=== PATIENT | female | born 1980 | race Caucasian/White ===

== ENCOUNTER 2022-01-10 14:47 | Emergency (ER) | payer MEDICAID ==
[2022-01-10 14:54] VITALS: BP 152/92
--- NOTE | 2022-01-10 15:08 | ED Physician Documentation ---
PD HPI HEENT - Stated complaint Stated Complaint: MOUTH PX - Chief complaint Chief Complaint: Heent - History obtained from History obtained from: Patient - History of Present Illness Timing - onset: How many weeks ago (1) - Additional information Additional information: 41-year-old female presents for evaluation of left upper molar pain for 1 week. Patient states that she cracked a tooth and only just recently got health insurance so she has not been able to make an appointment with a dentist. She states that it is becoming progressively more painful and she is concerned that it is becoming infected. Patient has been icing it with minimal relief. She states she is allergic to aspirin, Tylenol, and Motrin, so she has not taken any pain medications. Review of Systems Ten Systems: 10 systems reviewed and negative Constitutional: denies: Fever, Chills Ears: denies: Loss of hearing, Drainage/discharge, Tinnitus/ringing Nose: denies: Rhinorrhea / runny nose, Foreign Body Throat: reports: Dental pain / toothache. denies: Oral lesions / sores GI: denies: Abdominal Pain, Nausea, Vomiting PD PAST MEDICAL HISTORY - Past Medical History Past Medical History: Yes - Present Medications Home Medications: Ambulatory Orders Medication Instructions Recorded Confirmed Clindamycin [Cleocin] 450 mg PO TID 10 Days #90 cap 01/10/22 - Allergies Allergies/Adverse Reactions: Allergies Allergy/AdvReac Type Severity Reaction Status Date / Time acetaminophen [From Tylenol] Allergy Unknown Verified 01/10/22 14:55 amoxicillin Allergy Unknown Verified 01/10/22 14:54 cephalexin [From Keflex] Allergy Unknown Verified 01/10/22 14:55 clavulanic acid Allergy Unknown Verified 01/10/22 14:54 [From Augmentin] gabapentin Allergy Unknown Verified 01/10/22 14:57 hydrocodone [From Vicodin] Allergy Unknown Verified 01/10/22 14:57 ibuprofen Allergy Unknown Verified 01/10/22 14:55 methadone Allergy Unknown Verified 01/10/22 14:56 morphine Allergy Unknown Verified 01/10/22 14:56 Penicillins Allergy Unknown Verified 01/10/22 14:55 tramadol Allergy Unknown Verified 01/10/22 14:57 PD ED PE NORMAL - Vitals Vital signs reviewed: Yes - General General: Alert and oriented X 3, Well developed/nourished, Other (in pain) - HEENT HEENT: Atraumatic, PERRL, EOMI, Other (Poor dentition) - Neck Neck: Supple, no meningeal sign, No bony TTP, C-Spine cleared by NEXUS criteria - Cardiac Cardiac: RRR, No murmur - Respiratory Respiratory: No respiratory distress, Clear bilaterally - Abdomen Abdomen: Soft, Non tender, Non distended - Derm Derm: Normal color, Warm and dry, No rash - Extremities Extremities: No deformity, Normal ROM s pain, No edema - Neuro Neuro: Alert and oriented X 3, instructional aide 2-12 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 Extensive dental caries, will treat for possible infection. Patient states she is allergic to Tylenol, Motrin, and anything contains products. Limited options for pain control. Patient was counseled on the importance of following up with a dentist. Informed of [facility] in [place] that takes her insurance. Departure - Departure Disposition: 01 Home, Self Care Clinical Impression: Pain due to dental caries Condition: Stable Instructions: ED Tooth Pain Prescriptions: Clindamycin [Cleocin] 450 mg PO TID 10 Days #90 cap Discharge Date/Time: 01/10/22 15:19
== END 2022-01-10 15:19 | disposition home or self-care (01) ==
LOC: ED 14:47
DX: K02.9 Dental caries, unspecified (principal)
CPT/HCPCS: 99282

== ENCOUNTER 2022-02-27 17:07 | Emergency (ER) | payer MEDICAID ==
[2022-02-27 17:42] LABS: BASOPHILS % (AUTO) 0.4 %; EOSINOPHILS # (AUTO) 0.1 10^3/uL (0.0-0.7); EOSINOPHILS % (AUTO) 1.2 %; HCT - HEMATOCRIT 38.8 % (37.0-47.0); HGB - HEMOGLOBIN 13.1 g/dL (12.0-16.0); LYMPHOCYTES # (AUTO) 1.6 10^3/uL (1.5-3.5); LYMPHOCYTES % (AUTO) 15.8 %; MEAN CORPUSCULAR HEMOGLOBIN 30.4 pg (27.0-31.0); MEAN CORPUSCULAR HGB CONC 33.8 g/dL (32.0-36.0); MEAN PLATELET VOLUME 10.7 fL (7.9-10.8); MONOCYTES # (AUTO) 1.2 10^3/uL (0.0-1.0); MONOCYTES % (AUTO) 11.6 %; NEUTROPHILS # (AUTO) 7.1 10^3/uL (1.5-6.6); NEUTROPHILS % (AUTO) 70.8 %; PLT - PLATELET COUNT 215 10^3/uL (130-450); RED BLOOD COUNT 4.31 10^6/uL (4.20-5.40); RED CELL DISTRIBUTION WIDTH 12.1 % (12.0-15.0)
[2022-02-27] MEDS ORDERED: ONDANSETRON 4 MG/2 ML VIAL IVP STA (17:47)
[2022-02-27] MEDS ORDERED: HYDROmorphone 1 MG/ML CARPUJECT IVP STA (17:47)
--- NOTE | 2022-02-27 17:47 | ED Physician Documentation ---
PD HPI ABD PAIN - Stated complaint Stated Complaint: R SIDE PAIN - Chief complaint Chief Complaint: Abd Pain - History obtained from History obtained from: Patient, Family - Additional information Additional information: 41-year-old woman with chronic pain, shoulders and back, history of hysterectomy, cholecystectomy and hernia mesh, still has her appendix. She presents with 2 to 3 days of progressive right lower quadrant tenderness and pain radiating to the low back associate with very mild nausea. She has had ovarian cyst before and this does not feel like that. Review of Systems Ten Systems: 10 systems reviewed and negative Constitutional: denies: Fever, Chills Respiratory: denies: Dyspnea, Cough GI: reports: Abdominal Pain, Nausea. 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 - Present Medications Home Medications: Ambulatory Orders Medication Instructions Recorded Confirmed Citalopram [CeleXA] 10 mg PO DAILY 02/27/22 02/27/22 oxyCODONE [Roxicodone] 5 mg ORAL QID 02/27/22 02/27/22 polyethylene glycoL 3350 [Miralax] 17 gm PO DAILY PRN #1 each 02/27/22 - Allergies Allergies/Adverse Reactions: Allergies Allergy/AdvReac Type Severity Reaction Status Date / Time acetaminophen [From Tylenol] Allergy Unknown Verified 02/27/22 17:25 amoxicillin Allergy Unknown Verified 02/27/22 17:25 cephalexin [From Keflex] Allergy Unknown Verified 02/27/22 17:25 clavulanic acid Allergy Unknown Verified 02/27/22 17:25 [From Augmentin] gabapentin Allergy Unknown Verified 02/27/22 17:25 hydrocodone [From Vicodin] Allergy Unknown Verified 02/27/22 17:25 ibuprofen Allergy Unknown Verified 02/27/22 17:25 methadone Allergy Unknown Verified 02/27/22 17:25 morphine Allergy Unknown Verified 02/27/22 17:25 Penicillins Allergy Unknown Verified 02/27/22 17:25 tramadol Allergy Unknown Verified 02/27/22 17:25 - Living Situation Living Situation: reports: With spouse/s.o. - Social History Smoking Status: Current every day smoker PD ED PE NORMAL - Vitals Vital signs reviewed: Yes - General General: Alert and oriented X 3, Other (She appears uncomfortable) - HEENT HEENT: PERRL, EOMI - Neck Neck: Supple, no meningeal sign, No bony TTP - Cardiac Cardiac: RRR, No murmur - Respiratory Respiratory: No respiratory distress, Clear bilaterally - Abdomen Abdomen: Normal bowel sounds, Soft, Other (Focally tender in the right lower quadrant without surgical signs) - Derm Derm: Normal color, Warm and dry - Extremities Extremities: No edema, No calf tenderness / cord - Neuro Neuro: Alert and oriented X 3, Normal speech Results - Vitals Vitals: Vital Signs - 24 hr 02/27/22 02/27/22 17:22 19:15 Temperature 37.5 C 37.7 C Heart Rate 96 87 Respiratory 16 15 Rate Blood Pressure 116/72 135/73 H O2 Saturation 99 97 Oxygen O2 Source Room air - Labs Labs: Laboratory Tests 02/27/22 02/27/22 17:36 17:36 WBC 10.0 RBC 4.31 Hgb 13.1 Hct 38.8 MCV 90.0 MCH 30.4 MCHC 33.8 RDW 12.1 Plt Count 215 MPV 10.7 Neut # (Auto) 7.1 H Lymph # (Auto) 1.6 [place] # (Auto) 1.2 H Eos # (Auto) 0.1 Baso # (Auto) 0.0 Absolute Nucleated RBC 0.00 Nucleated RBC % 0.0 Sodium 135 Potassium 3.8 Chloride 94 L Carbon Dioxide 30 Anion Gap 11.0 BUN 9 Creatinine 0.7 Estimated GFR (MDRD) 93 Glucose 96 Calcium 9.0 Total Bilirubin 0.8 AST 18 ALT 20 Alkaline Phosphatase 74 Total Protein 7.5 Albumin 3.9 Globulin 3.6 Albumin/Globulin Ratio 1.1 Lipase 18 L PD MEDICAL DECISION MAKING - ED course ED course: 41-year-old woman presents with progressive right lower quadrant pain of the last few days duration. She is on chronic narcotics for pain management. Lab work is relatively unremarkable. She is status post hysterectomy so there is no chance of . CT done showing constipation, no evidence of appendicitis, she does have an incidental right Middle lobe pulmonary nodule and mild postcholecystectomy intra and extrahepatic biliary dilatation without elevation of her transaminases or bilirubin. She was treated here initially with Dilaudid this was followed by Toradol. Given the likely cause of her pain is the constipation further narcotics were not offered and she was given laxatives here. Given close return precautions. We did discuss the right Middle lobe pulmonary nodule need for follow-up for same since she is an active smoker and she was encouraged to quit smoking. Departure - Departure Disposition: 01 Home, Self Care Clinical Impression: Abdominal pain, Constipation Condition: Good Record reviewed to determine appropriate education?: Yes Instructions: ED Abdominal Pain Female Non-Specific Abdominal Pain, ED Constipation Prescriptions: polyethylene glycoL 3350 [Miralax] 17 gm PO DAILY PRN #1 each PRN Reason: Constipation Comments: As discussed, the CAT scan is normal with regards to the appendix and other surgical or serious causes of pain, there is a large amount of stool so this is produced presumed to be your source of pain and for which I am giving you several laxatives. If not better in 24 hours please return for reevaluation. As discussed you have a small right middle lobe pulmonary nodule measuring 4 mm. Given that you do use tobacco will need repeat CAT scan in 12 months to reevaluate. Mention this to your physician at the next available appointment. Discharge Date/Time: 02/27/22 19:25
[2022-02-27] MEDS ORDERED: iohexoL-300 100 ML VIAL ONE (17:50)
[2022-02-27 17:55] LABS: ALBUMIN 3.9 g/dL (3.2-5.5); ALBUMIN/GLOBULIN RATIO 1.1 (1.0-2.2); BILIRUBIN,TOTAL 0.8 mg/dL (0.2-1.0); CREATININE 0.7 mg/dL (0.4-1.0); POTASSIUM 3.8 mmol/L (3.5-5.0); TOTAL PROTEIN 7.5 g/dL (6.7-8.2)
[2022-02-27] MEDS ORDERED: iohexoL-300 100 ML VIAL IVP ONE (18:21)
--- NOTE | 2022-02-27 19:03 | CT Report ---
PROCEDURE: ABDOMEN/PELVIS W INDICATIONS: IV only, right lower quadrant tenderness CONTRAST: 100ml omni 300 TECHNIQUE: After the administration of IV contrast, 5 mm thick sections acquired from the diaphragms to the symp hysis. 5 mm thick coronal and sagittal reformats were acquired. For radiation dose reduction, the f ollowing was used: automated exposure control, adjustment of mA and/or kV according to patient size. COMPARISON: None. FINDINGS: Image quality: Excellent. ABDOMEN: Lung bases: Essentially 4 mm nodule in the right middle lobe (series 4 image 1). Heart size is ilsa l. Small hiatal hernia. Solid organs: Liver and spleen are normal in size and enhancement. Mild hepatic steatosis. Gallblad arin is surgically absent. Common bile duct is dilated measuring up to 9 mm. No common bile duct stone s. Mild intrahepatic biliary dilation. Pancreas enhances normally. No adrenal nodules. Kidneys dem onstrate normal size and enhancement, without hydronephrosis. Peritoneum and bowel: Bowel loops demonstrate normal wall thickness and caliber. Appendix is normal . There is a large amount of stool in colon. No free fluid or air. Nodes and vessels: No retroperitoneal or mesenteric adenopathy by size criteria. Aorta and inferior vena cava are normal in size. Miscellaneous: No ventral hernias. There is a metallic artifact anterior to liver on the abdominal w all. PELVIS: Genitourinary: Bladder wall thickness is normal. Trace amount of free fluid in the cul-de-sac may b e physiological. Miscellaneous: No inguinal hernias or adenopathy. Bones: No suspicious bony lesions. No vertebral body compression fractures. IMPRESSION: 1. Normal appendix. A cause for right lower quadrant tenderness is not definitively identified. 2. A large amount of stool in colon. 3. There is mild intrahepatic and intrahepatic biliary dilation, which may be related to cholecystect nesha. Please correlate with serum bilirubin for biliary obstruction. 4. A 4 mm nodule in the right middle lobe. Please see enclosed follow-up recommendation. Fleischner Society criteria for SOLID lung nodule followup. Nodule size (mm)Low-risk patientHigh-risk patient "d4No follow-up neededFollow-up at 12 mo; if no change, no further follow-up >[id number]-[id number] CT at 12 mo; if no change, no further follow-up needed.Initial follow-up CT at 6-12 mo, then 18-24 mo if no change. >6-8Initial follow-up CT at 6-12 mo, then 18-24 mo if no change. Initial follow-up CT at 3-6 mo, then 9-12 mo and 24 mo if no change. >8Follow-up CT at 3, 9, 24 mo. Or PET and/or biopsy.Same as for low-risk pts. Fleischner Society criteria for SUB-SOLID lung nodule followup. Solitary pure ground-glass nodules 5 mm or lessNo followup needed. >5 mm3 mo follow-up CT to confirm persistence. Then annual CT for 3 years. Part-solid nodules3 mo follow-up CT to confirm persistence. If persistent with solid component <5 mm , annual CT for at least 3 years. If solid component is 5 mm or more, biopsy or surgical resection. Consider PET-CT for lesions > 10 mm. Multiple sub-solid nodules Pure ground glass nodules [address] at 2 and 4 years. Pure ground glass nodules >5 mm without dominant lesion. [address] to confirm persistence, then annual followup CT for at least 3 years. Dominant nodule(s) with part-solid or solid component. [address] to confirm persistence. If persistent, consider biopsy or surgical resection, eleanor if lesions have >5 mm solid component. Reviewed by: Lise Hercules MD on 02/27/2022 7:02 PM PST Approved by: Lise Hercules MD on 02/27/2022 7:02 PM PST Station ID: [id number]
[2022-02-27] MEDS ORDERED: KETOROLAC 15 MG/ML VIAL IVP STA (19:13)
[2022-02-27] MEDS ORDERED: bisacodyL 5 MG TABLET PO STA (19:13)
[2022-02-27] MEDS ORDERED: LACTULOSE 10 GM /15 ML UDC PO STA (19:13)
[2022-02-27 19:16] VITALS: BP 135/73
== END 2022-02-27 19:25 | disposition home or self-care (01) ==
LOC: ED 17:07
DX: K59.00 Constipation, unspecified (principal); R10.31 Right lower quadrant pain; R91.1 Solitary pulmonary nodule; F17.200 Nicotine dependence, unspecified, uncomplicated
CPT/HCPCS: 36415; 74177; 80053; 83690; 85025; 96374; 96375; 99284; A9270; J1170; Q9967

== ENCOUNTER 2022-07-21 15:23 | Emergency (ER) | payer MEDICAID ==
[2022-07-21 16:29] LABS: BASOPHILS % (AUTO) 0.6 %; EOSINOPHILS % (AUTO) 0.5 %; HCT - HEMATOCRIT 42.9 % (37.0-47.0); LYMPHOCYTES # (AUTO) 1.3 10^3/uL (1.5-3.5); LYMPHOCYTES % (AUTO) 20.2 %; MEAN CORPUSCULAR HGB CONC 32.6 g/dL (32.0-36.0); MEAN CORPUSCULAR VOLUME 88.8 fL (81.0-99.0); MEAN PLATELET VOLUME 10.7 fL (7.9-10.8); MONOCYTES # (AUTO) 0.5 10^3/uL (0.0-1.0); MONOCYTES % (AUTO) 6.8 %; NEUTROPHILS # (AUTO) 4.8 10^3/uL (1.5-6.6); NEUTROPHILS % (AUTO) 71.7 %; PLT - PLATELET COUNT 262 10^3/uL (130-450); RED BLOOD COUNT 4.83 10^6/uL (4.20-5.40); WHITE BLOOD COUNT 6.6 x10^3/uL (4.8-10.8)
[2022-07-21 16:34] VITALS: BP 135/89
--- NOTE | 2022-07-21 16:39 | ED Physician Documentation ---
History of Present Illness - Stated complaint Stated Complaint: FAST HEART RATE/ NUMBNESS IN HAND - Chief complaint Chief Complaint: Cardiac - Additonal information Additional information: 42-year-old female presents emergency department for evaluation of near syncope and feeling lightheaded. She was standing at work when she began to feel a racing heart and felt as though she was going to faint. The symptoms lasted about 5 minutes before subsiding. She denied chest pain or shortness of air. Denies any history of anemia, melena or vaginal bleeding. She is a daily tobacco and cannabis user. Also has chronic pain for which she is prescribed oxycodone. No recent travel. No immobilization or surgery. She is not on OCP. No unilateral leg swelling. Review of Systems Constitutional: denies: Fever, Chills Cardiac: reports: Palpitations. 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 - Present Medications Home Medications: Ambulatory Orders Medication Instructions Recorded Confirmed Citalopram [CeleXA] 10 mg PO DAILY 02/27/22 02/27/22 oxyCODONE [Roxicodone] 5 mg ORAL QID 02/27/22 02/27/22 polyethylene glycoL 3350(BULK) 17 gm PO DAILY PRN #1 each 02/27/22 [Miralax] - Allergies Allergies/Adverse Reactions: Allergies Allergy/AdvReac Type Severity Reaction Status Date / Time acetaminophen [From Tylenol] Allergy Unknown Verified 07/21/22 15:26 amoxicillin Allergy Unknown Verified 07/21/22 15:26 cephalexin [From Keflex] Allergy Unknown Verified 07/21/22 15:26 clavulanic acid Allergy Unknown Verified 07/21/22 15:26 [From Augmentin] gabapentin Allergy Unknown Verified 07/21/22 15:26 hydrocodone [From Vicodin] Allergy Unknown Verified 07/21/22 15:26 ibuprofen Allergy Unknown Verified 07/21/22 15:26 methadone Allergy Unknown Verified 07/21/22 15:26 morphine Allergy Unknown Verified 07/21/22 15:26 Penicillins Allergy Unknown Verified 07/21/22 15:26 tramadol Allergy Unknown Verified 02/27/22 17:25 - Social History Does the pt smoke?: Yes Smoking Status: Current every day smoker Does the pt drink ETOH?: No Substance Use and Type: Marijuana PD ED PE NORMAL - General General: Alert and oriented X 3, No acute distress - HEENT HEENT: Atraumatic, Moist mucous membranes - Neck Neck: Supple, no meningeal sign, No adenopathy - Cardiac Cardiac: RRR, No murmur - Respiratory Respiratory: No respiratory distress, Clear bilaterally - Abdomen Abdomen: Normal bowel sounds, Soft, Non tender - Back Back: No CVA TTP, No spinal TTP - Derm Derm: Normal color, Warm and dry - Extremities Extremities: No deformity - Neuro Neuro: Alert and oriented X 3, 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 Relevant findings are: Rate: Rate (enter#) (62) Rhythm: NSR [place]: Normal Intervals: Normal [place] QRS: Normal Ischemia: Normal ST segments Compare to prior EKG: Old EKG unavailable Computer interpretation: Agree with computer - Labs Labs: Laboratory Tests 07/21/22 07/21/22 16:22 16:22 WBC 6.6 RBC 4.83 Hgb 14.0 Hct 42.9 MCV 88.8 MCH 29.0 MCHC 32.6 RDW 13.0 Plt Count 262 MPV 10.7 Neut # (Auto) 4.8 Lymph # (Auto) 1.3 L [place] # (Auto) 0.5 Eos # (Auto) 0.0 Baso # (Auto) 0.0 Absolute Nucleated RBC 0.00 Nucleated RBC % 0.0 Sodium 138 Potassium 4.0 Chloride 101 Carbon Dioxide 28 Anion Gap 9.0 BUN 14 Creatinine 0.6 Estimated GFR (MDRD) 111 Glucose 101 H Calcium 9.4 Total Bilirubin 0.8 AST 14 ALT 13 Alkaline Phosphatase 73 Total Protein 7.9 Albumin 4.0 Globulin 3.9 Albumin/Globulin Ratio 1.0 Lipase 25 - Rads (name of study) cxr Relevant Findings:: EMP independent interpretation of test (No acute cardiopulmonary process) PD Medical Decision Making - ED course Complexity details: reviewed results, re-evaluated patient, d/w patient ED course: This is well-appearing 42-year-old female who presents emergency department for evaluation of near syncope. Reports being at work when she began to feel lightheaded, dizzy and had palpitations. No history of similar. However the patient does use opioids chronically due to chronic pain also consumes cannabis daily. She denied having chest pain or shortness of air. On presentation to the emergency department the patient appeared well. She was normotensive and without tachycardia or fever. Her cardiopulmonary auscultation was unremarkable. Neurological exam was also negative. I did obtain a CBC and electrolytes and per my interpretation no acute worrisome findings. Spe cifically no anemia or worrisome electrolyte derangement that could be considered as causative for near syncope. Her EKG showed sinus rhythm without ischemic changes. Chest x-ray showed no findings of pneumonia, pleural effusion cardiomegaly or heart failure. Orthostatics obtained in the emergency department were also negative. At this time Patient is stable for discharge home. I have asked her to consider If narcotic use may be contributing to her symptoms. I have asked her to consider tobacco cessation. She will follow close with PCP. May benefit from an outpatient Holter monitor. The usual emergent return precautions were discussed Departure - Departure Disposition: 01 Home, Self Care Clinical Impression: Near syncope Condition: Stable Record reviewed to determine appropriate education?: Yes Instructions: ED Near Syncope Unkn Comments: You are seen today in the emergency department because you began to feel lightheaded, dizzy and have palpitations. Here in the emergency department your CBC and electrolytes were all essentially normal. Your chest x-ray was also unremarkable. Your EKG was normal for age. At this time is not clear what the cause of your near fainting episode was. I encourage you to consider if your chronic opioid use could be contributing, Especially if coupled with cannabis use. Make sure that you are staying well- hydrated and eating frequent meals. Please discuss this ED visit with your primary care provider. If this becomes more recurrent you may benefit from outpatient referral for a Holter monitor. Return to the ER if you develop any sudden severe chest pain, fainting episodes or severely short of air.
[2022-07-21 16:42] LABS: BILIRUBIN,TOTAL 0.8 mg/dL (0.2-1.0); CALCIUM 9.4 mg/dL (8.5-10.3); CREATININE 0.6 mg/dL (0.4-1.0); TOTAL PROTEIN 7.9 g/dL (6.7-8.2)
--- NOTE | 2022-07-21 16:49 | XRAY Report ---
PROCEDURE: Chest 1 View X-Ray INDICATIONS: chest pain TECHNIQUE: One view of the chest was acquired. COMPARISON: None. FINDINGS: Surgical changes and devices: ACDF Lungs and pleura: No pleural effusions or pneumothorax. Lungs are clear. Mediastinum: Mediastinal contours appear normal. Heart size is normal. Bones and chest wall: No suspicious bony lesions. Overlying soft tissues appear unremarkable. IMPRESSION: No acute cardiopulmonary disease. Reviewed by: Simran Pérez MD on 07/21/2022 4:47 PM PDT Approved by: Simran Pérez MD on 07/21/2022 4:47 PM PDT Station ID: [id number]
== END 2022-07-21 17:28 | disposition home or self-care (01) ==
LOC: ED 15:23
DX: R55 Syncope and collapse (principal); F17.200 Nicotine dependence, unspecified, uncomplicated
CPT/HCPCS: 36415; 80053; 83690; 85025; 93005; 99283; 99284

== ENCOUNTER 2022-09-12 11:21 | Emergency (ER) | payer MEDICAID ==
[2022-09-12 11:51] LABS: BILIRUBIN,URINE NEGATIVE (NEGATIVE); GLUCOSE, URINE (UA) NEGATIVE (NEGATIVE); KETONES,URINE (UA) NEGATIVE (NEGATIVE); LEUKOCYTE ESTERASE, URINE NEGATIVE (NEGATIVE); NITRITE,URINE POSITIVE (NEGATIVE); OCCULT BLOOD,URINE TRACE-INTA (NEGATIVE); PH,URINE 5.5 PH (5.0-7.5); PROTEIN,URINE NEGATIVE (NEGATIVE); UROBILINOGEN,URINE 0.2 (NORMAL) E.U./dL (NORMAL)
[2022-09-12 11:52] LABS: BASOPHILS % (AUTO) 0.4 %; EOSINOPHILS # (AUTO) 0.1 10^3/uL (0.0-0.7); EOSINOPHILS % (AUTO) 0.7 %; HCT - HEMATOCRIT 43.9 % (37.0-47.0); HGB - HEMOGLOBIN 14.5 g/dL (12.0-16.0); LYMPHOCYTES # (AUTO) 1.6 10^3/uL (1.5-3.5); LYMPHOCYTES % (AUTO) 23.3 %; MEAN CORPUSCULAR HEMOGLOBIN 29.2 pg (27.0-31.0); MEAN CORPUSCULAR VOLUME 88.5 fL (81.0-99.0); MEAN PLATELET VOLUME 10.7 fL (7.9-10.8); MONOCYTES # (AUTO) 0.6 10^3/uL (0.0-1.0); MONOCYTES % (AUTO) 8.6 %; NEUTROPHILS # (AUTO) 4.7 10^3/uL (1.5-6.6); NEUTROPHILS % (AUTO) 66.9 %; PLT - PLATELET COUNT 246 10^3/uL (130-450); RED BLOOD COUNT 4.96 10^6/uL (4.20-5.40); RED CELL DISTRIBUTION WIDTH 13.5 % (12.0-15.0)
[2022-09-12 11:52] LABS: CLARITY,URINE CLEAR (CLEAR)
[2022-09-12 12:01] LABS: BACTERIA,URINE Few /HPF (None Seen); MUCUS,URINE Moderate Strands; RBC,URINE 0-5 /HPF (0-5); SQUAMOUS EPITHELIAL CELL,UR FEW Squamous (<= Few)
[2022-09-12 12:02] LABS: HCG UR QUAL NEGATIVE
[2022-09-12 12:05] LABS: ALBUMIN 4.2 g/dL (3.2-5.5); BILIRUBIN,TOTAL 1.3 mg/dL (0.2-1.0); CALCIUM 9.3 mg/dL (8.5-10.3); CREATININE 0.8 mg/dL (0.4-1.0); POTASSIUM 3.2 mmol/L (3.5-5.0); TOTAL PROTEIN 8.3 g/dL (6.7-8.2)
[2022-09-12] MEDS ORDERED: iohexoL-300 100 ML VIAL ONE (12:07)
--- NOTE | 2022-09-12 12:12 | ED Physician Documentation ---
PD HPI ABD PAIN - Stated complaint Stated Complaint: ABD CRAMPIN - Chief complaint Chief Complaint: Abd Pain - History obtained from History obtained from: Patient - History of Present Illness Timing - duration: Days (3-4) Timing - details: Gradual onset Pain level max: 8 Pain level now: 8 Quality: Cramping, Aching, Pain Location: RLQ, Suprapubic, LLQ Radiation: No: Chest, , Lower back, Left flank, Left shoulder, Right flank, Right shoulder, Upper back Associated symptoms: Nausea. No: Fever, Vomiting, Hematemesis, Diarrhea, Constipation, Melena, Hematochezia, Dysuria, Hematuria, Chest pain Recently seen: Not recently seen - Additional information Additional information: 42-year-old female with diarrhea for the past several days, complained of increasing abdominal cramping. No vomiting. No fevers. No chills. No recent antibiotics or travel. She states that her usual oxycodone at home is not helping for pain. Denies any possibility of . No vaginal bleeding or discharge. No STD exposure. Review of Systems Constitutional: denies: Fever, Chills Nose: denies: Rhinorrhea / runny nose, Congestion Respiratory: denies: Cough GI: reports: Nausea, Diarrhea. denies: Vomiting Skin: denies: Rash Musculoskeletal: denies: Neck pain, Back pain Neurologic: denies: Headache PD PAST MEDICAL HISTORY - Past Medical History Past Medical History: Yes Other Past Medical History: "Arthritis" - Past Surgical History Past Surgical History: Yes General: Cholecystectomy /[employer]ISTR[employer]IVE [employer]PER[employer]OR: Hysterectomy - Present Medications Home Medications: Ambulatory Orders Medication Instructions Recorded Confirmed Citalopram [CeleXA] 10 mg PO DAILY 02/27/22 02/27/22 oxyCODONE [Roxicodone] 5 mg ORAL QID 02/27/22 02/27/22 polyethylene glycoL 3350(BULK) 17 gm PO DAILY PRN #1 each 02/27/22 [Miralax] Dicyclomine [Bentyl] 10 mg PO QID PRN #30 cap 09/12/22 HYDROmorphone [Dilaudid] 2 mg PO Q6H PRN #10 tablet 09/12/22 Nitrofurantoin [Macrobid] 100 mg PO BID #10 cap 09/12/22 Ondansetron Odt [Zofran] 4 mg TL Q6H PRN #10 tablet 09/12/22 - Allergies Allergies/Adverse Reactions: Allergies Allergy/AdvReac Type Severity Reaction Status Date / Time acetaminophen [From Tylenol] Allergy Unknown Verified 09/12/22 11:39 amoxicillin Allergy Unknown Verified 09/12/22 11:39 cephalexin [From Keflex] Allergy Unknown Verified 09/12/22 11:39 clavulanic acid Allergy Unknown Verified 09/12/22 11:39 [From Augmentin] gabapentin Allergy Unknown Verified 09/12/22 11:39 hydrocodone [From Vicodin] Allergy Unknown Verified 09/12/22 11:39 ibuprofen Allergy Unknown Verified 09/12/22 11:39 methadone Allergy Unknown Verified 07/21/22 15:26 morphine Allergy Unknown Verified 09/12/22 11:39 Penicillins Allergy Unknown Verified 09/12/22 11:39 tramadol Allergy Unknown Verified 09/12/22 11:39 - Living Situation Living Arrangement: reports: At home - Social History Does the pt smoke?: Yes Smoking Status: Current every day smoker Does the pt drink ETOH?: No PD ED PE NORMAL - Vitals Vital signs reviewed: Yes - General General: Alert and oriented X 3, No acute distress - HEENT HEENT: PERRL, Moist mucous membranes - Neck Neck: Supple, no meningeal sign - Cardiac Cardiac: RRR, Strong equal pulses - Respiratory Respiratory: No respiratory distress, Clear bilaterally - Abdomen Abdomen: Soft, Non tender, Non distended - Back Back: No CVA TTP - Derm Derm: Warm and dry, No rash - Extremities Extremities: No edema, No calf tenderness / cord - Neuro Neuro: Alert and oriented X 3 - Psych Psych: Normal mood, Normal affect Results - Vitals Vitals: Vital Signs - 24 hr 09/12/22 09/12/22 09/12/22 11:35 13:55 14:54 Temperature 36.4 C L Heart Rate 100 72 81 Respiratory 16 18 18 Rate Blood Pressure 149/95 H 154/106 H 136/92 H O2 Saturation 100 98 99 Oxygen O2 Source Room air - Labs Labs: Laboratory Tests 09/12/22 09/12/22 09/12/22 11:45 11:45 11:47 WBC 7.0 RBC 4.96 Hgb 14.5 Hct 43.9 MCV 88.5 MCH 29.2 MCHC 33.0 RDW 13.5 Plt Count 246 MPV 10.7 Neut # (Auto) 4.7 Lymph # (Auto) 1.6 [place] # (Auto) 0.6 Eos # (Auto) 0.1 Baso # (Auto) 0.0 Absolute Nucleated RBC 0.00 Nucleated RBC % 0.0 Sodium Potassium Chloride Carbon Dioxide Anion Gap BUN Creatinine Estimated GFR (MDRD) Glucose Calcium Total Bilirubin AST ALT Alkaline Phosphatase Total Protein Albumin Globulin Albumin/Globulin Ratio Lipase Urine Color YELLOW Urine Clarity CLEAR Urine pH 5.5 Ur Specific [place] 1.025 Urine Protein NEGATIVE Urine Glucose (UA) NEGATIVE Urine Ketones NEGATIVE Urine Occult Blood TRACE-INTA Urine Nitrite POSITIVE H Urine Bilirubin NEGATIVE Urine Urobilinogen 0.2 (NORMAL) Ur Leukocyte Esterase NEGATIVE Urine RBC 0-5 Urine WBC 6-10 H Ur Squamous Epith Cells FEW Squamous Urine Bacteria Few Urine Mucus Moderate Strands Ur Microscopic Review INDICATED Urine Culture Comments INDICATED Urine HCG, Qual NEGATIVE 09/12/22 11:47 WBC RBC Hgb Hct MCV MCH MCHC RDW Plt Count MPV Neut # (Auto) Lymph # (Auto) [place] # (Auto) Eos # (Auto) Baso # (Auto) Absolute Nucleated RBC Nucleated RBC % Sodium 140 Potassium 3.2 L Chloride 106 Carbon Dioxide 25 Anion Gap 9.0 BUN 11 Creatinine 0.8 Estimated GFR (MDRD) 79 L Glucose 118 H Calcium 9.3 Total Bilirubin 1.3 H AST 19 ALT 20 Alkaline Phosphatase 83 Total Protein 8.3 H Albumin 4.2 Globulin 4.1 Albumin/Globulin Ratio 1.0 Lipase 23 Urine Color Urine Clarity Urine pH Ur Specific [place] Urine Protein Urine Glucose (UA) Urine Ketones Urine Occult Blood Urine Nitrite Urine Bilirubin Urine Urobilinogen Ur Leukocyte Esterase Urine RBC Urine WBC Ur Squamous Epith Cells Urine Bacteria Urine Mucus Ur Microscopic Review Urine Culture Comments Urine HCG, Qual - Rads (name of study) CT abd.[email or web address] Relevant Findings:: Final report received, See rad report PD Medical Decision Making - ED course Complexity details: reviewed results, re-evaluated patient, considered differential, d/w patient ED course: 42-year-old female with what appears to be a viral gastroenteritis for the past several days. She is on chronic oxycodone and does have a pain contract with her doctor for this. She does not have any fevers. CT scan does not show any acute abnormalities. Possible UTI versus contaminant, but given her lower abdominal pain, we will treat. Placed on Macrobid for this. No CVA tenderness or evidence of pyelonephritis or sepsis. Pain well controlled in the emergency department. She was given IV fluids, IV Dilaudid and Bentyl as well as Levsin. Will prescribe a small amount of pain medication for home in addition to nausea medication and antibiotics. We will have her follow-up with her doctor for further care. Patient is well-appearing, nontoxic. Afebrile. No peritoneal signs on serial exam of the abdomen. Patient counseled regarding signs and symptoms for which I believe and urgent re-evaluation would be necessary. Patient with good understanding of and agreement to plan and is comfortable going home at this time This document was made in part using voice recognition software. While efforts are made to proofread this document, sound alike and grammatical errors may occur. Departure - Departure Disposition: Home, Self Care Clinical Impression: Viral gastroenteritis UTI (urinary tract infection) Qualifiers: Urinary tract infection type: acute cystitis Hematuria presence: without hematuria Qualified Code(s): N30.00 - Acute cystitis without hematuria Condition: Good Instructions: ED Gastroenteritis Viral Follow-Up: your,doctor in 1 week [Other] Prescriptions: Dicyclomine [Bentyl] 10 mg PO QID PRN #30 cap PRN Reason: Abdominal Pain HYDROmorphone [Dilaudid] 2 mg PO Q6H PRN #10 tablet PRN Reason: Abdominal Pain Nitrofurantoin [Macrobid] 100 mg PO BID #10 cap Ondansetron Odt [Zofran] 4 mg TL Q6H PRN #10 tablet PRN Reason: Nausea / Vomiting Comments: Your CT scan does not show any acute abnormalities. This appears to be a viral gastroenteritis. Please drink plenty of fluids and rest. Please return if you worsen. Your prescriptions [facility] sent to [facility] in [place]. You also have a urinary tract infection, we will place you on antibiotics for this. I am prescribing a short course of narcotic pain medication for you. These are potentially dangerous and addictive medications that should be used carefully. These medications may constipate you. Take an dnws-tka-hcmpanc stool softener (docusate) twice daily with plenty of water while taking these medications. If you go 24 hours without a bowel movement, take [id number] miralax, per package instructions. Do not drink or drive while taking these medications. If you received narcotic or sedating medications while in the emergency department, do not drive for 24 hours. Store this medication in a safe, secure place and out of reach of children. It is a violation of federal law to give or sell this medication to another person or to use in a manner other than prescribed. The ED will not refill narcotic prescriptions, including prescriptions lost or stolen. To dispose of unwanted medications: 1. [facility] at [address] in [place] has a medication drop box. They accept prescription medications (in pill form) Wednesday through Wednesday 9:00 a.m. to 5:00 p.m. 2. [facility] accepts prescription medications (in pill form only) for disposal year round. Call for more information. 3. Contact the [facility] for the next [facility] sponsored prescription drug collection event. , [phone], or [phone]; Forms: Activity restrictions Discharge Date/Time: 09/12/22 14:56
[2022-09-12] MEDS ORDERED: HYOSCYAMINE SL 0.125 MG TABLET SL STA (13:00)
--- NOTE | 2022-09-12 13:05 | CT Report ---
PROCEDURE: CT abdomen pelvis with contrast INDICATIONS: RLQ abd pain CONTRAST: 100ml omni 300 TECHNIQUE: After the administration of contrast, 5 mm thick sections acquired from the diaphragms to the symphys is. 5 mm thick coronal and sagittal reformats were acquired. For radiation dose reduction, the foll owing was used: automated exposure control, adjustment of mA and/or kV according to patient size. COMPARISON: FINDINGS: Image quality: Excellent. Lung bases and heart: Unremarkable. Liver: No solid mass. Gallbladder and biliary tree: Cholecystectomy Spleen: No splenomegaly. Pancreas: No pancreatic ductal dilation. Adrenals: No adrenal nodule. Kidneys and ureters: No hydronephrosis. No renal cystic lesion which requires follow up. No solid mas s. Bowel and peritoneum: No bowel distension. No pathologic free fluid. Although appendix is not discret thuan visualized, there are no pericecal inflammatory changes to suggest appendicitis Lymph nodes: No central or retroperitoneal adenopathy. Vessels: No infrarenal aortic aneurysm. PELVIS Reproductive organs: Unremarkable. Bladder: No abnormal wall thickening, accounting for underdistension. Pelvic lymph nodes: No pelvic adenopathy by size criteria. Bones: No aggressive osseous abnormality. Other: No significant ventral or inguinal hernia. IMPRESSION: No acute CT findings in the abdomen and pelvis. Although the appendix is not discretely visualized, t here is no pericecal inflammatory change to suggest appendicitis. Reviewed by: Bari Montano MD on 09/12/2022 12:03 PM BENNIE Approved by: Bari Montano MD on 09/12/2022 12:03 PM BENNIE Station ID: [id number]
[2022-09-12] MEDS ORDERED: DICYCLOMINE 10 MG CAPSULE PO STA (13:36)
[2022-09-12] MEDS ORDERED: HYDROmorphone 1 MG/ML CARPUJECT IVP STA ×2 (13:36→14:28)
[2022-09-12] MEDS ORDERED: NITROFURANTOIN MACRO 100 MG CAPSULE PO STA (13:37)
[2022-09-12] MEDS ORDERED: SODIUM CHLORIDE 0.9% 1,000 ML IV STA (13:37)
[2022-09-12 15:00] VITALS: BP 136/92
[2022-09-12] MEDS ORDERED: iohexoL-300 100 ML VIAL IVP ONE (15:05)
== END 2022-09-12 14:56 | disposition home or self-care (01) ==
LOC: ED 11:21
DX: A08.4 Viral intestinal infection, unspecified (principal); N30.00 Acute cystitis without hematuria; F17.200 Nicotine dependence, unspecified, uncomplicated
CPT/HCPCS: 36415; 74177; 80053; 81001; 81025; 83690; 85025; 87086; 87181; 96374; 96376; 99283; 99284; A9270; J1170; Q9967; 81003

== ENCOUNTER 2022-11-10 12:17 | Emergency (ER) | payer MEDICAID ==
[2022-11-10 12:43] LABS: BASOPHILS # (AUTO) 0.1 10^3/uL (0.0-0.1); BASOPHILS % (AUTO) 0.7 %; EOSINOPHILS # (AUTO) 0.1 10^3/uL (0.0-0.7); EOSINOPHILS % (AUTO) 1.2 %; HCT - HEMATOCRIT 42.4 % (37.0-47.0); HGB - HEMOGLOBIN 14.4 g/dL (12.0-16.0); LYMPHOCYTES # (AUTO) 2.3 10^3/uL (1.5-3.5); LYMPHOCYTES % (AUTO) 32.5 %; MEAN CORPUSCULAR HEMOGLOBIN 30.1 pg (27.0-31.0); MEAN CORPUSCULAR VOLUME 88.7 fL (81.0-99.0); MEAN PLATELET VOLUME 10.9 fL (7.9-10.8); MONOCYTES # (AUTO) 0.6 10^3/uL (0.0-1.0); MONOCYTES % (AUTO) 8.6 %; NEUTROPHILS # (AUTO) 4.1 10^3/uL (1.5-6.6); NEUTROPHILS % (AUTO) 56.7 %; PLT - PLATELET COUNT 226 10^3/uL (130-450); RED BLOOD COUNT 4.78 10^6/uL (4.20-5.40); WHITE BLOOD COUNT 7.2 x10^3/uL (4.8-10.8)
[2022-11-10 13:19] LABS: ALBUMIN 4.4 g/dL (3.2-5.5); ALBUMIN/GLOBULIN RATIO 1.5 (1.0-2.2); BILIRUBIN,TOTAL 0.7 mg/dL (0.2-1.0); CALCIUM 9.7 mg/dL (8.5-10.3); CREATININE 0.8 mg/dL (0.6-1.3); TOTAL PROTEIN 7.3 g/dL (6.4-8.9)
[2022-11-10 13:45] LABS: BILIRUBIN,URINE NEGATIVE (NEGATIVE); GLUCOSE, URINE (UA) NEGATIVE (NEGATIVE); KETONES,URINE (UA) NEGATIVE (NEGATIVE); LEUKOCYTE ESTERASE, URINE NEGATIVE (NEGATIVE); NITRITE,URINE NEGATIVE (NEGATIVE); OCCULT BLOOD,URINE NEGATIVE (NEGATIVE); PH,URINE 6.5 PH (5.0-7.5); PROTEIN,URINE NEGATIVE (NEGATIVE); UROBILINOGEN,URINE 0.2 (NORMAL) E.U./dL (NORMAL)
[2022-11-10 13:47] LABS: CLARITY,URINE CLEAR (CLEAR)
[2022-11-10 13:48] LABS: HCG UR QUAL NEGATIVE
[2022-11-10] MEDS: ONDANSETRON 4 MG/2 ML VIAL IVP STA (14:23)
[2022-11-10] MEDS: SODIUM CHLORIDE 0.9% 1,000 ML IV STA (14:24)
[2022-11-10] MEDS: MORPHINE 2 MG/ML CARPUJECT IVP STA (14:24)
--- NOTE | 2022-11-10 15:19 | CT Report ---
PROCEDURE: CT abdomen pelvis with contrast INDICATIONS: abd pain CONTRAST: 100ml Omni 300 TECHNIQUE: After the administration of contrast, 5 mm thick sections acquired from the diaphragms to the symphys is. 5 mm thick coronal and sagittal reformats were acquired. For radiation dose reduction, the foll owing was used: automated exposure control, adjustment of mA and/or kV according to patient size. COMPARISON: FINDINGS: Image quality: Excellent. Lung bases and heart: Unremarkable. Liver: No solid mass. Gallbladder and biliary tree: Cholecystectomy Spleen: No splenomegaly. Pancreas: No pancreatic ductal dilation. Adrenals: No adrenal nodule. Kidneys and ureters: No hydronephrosis. No renal cystic lesion which requires follow up. No solid mas s. Bowel and peritoneum: No bowel distension. No pathologic free fluid. Normal appendix Lymph nodes: No central or retroperitoneal adenopathy. Vessels: No infrarenal aortic aneurysm. PELVIS Reproductive organs: Unremarkable. Bladder: No abnormal wall thickening, accounting for underdistension. Pelvic lymph nodes: No pelvic adenopathy by size criteria. Bones: No aggressive osseous abnormality. Other: No significant ventral or inguinal hernia. IMPRESSION: No acute CT findings in the abdomen and pelvis Reviewed by: Bari Montano MD on 11/10/2022 2:18 PM BENNIE Approved by: Bari Montano MD on 11/10/2022 2:18 PM AKKRISTA Station ID: [id number]
--- NOTE | 2022-11-10 15:34 | ED Physician Documentation ---
History of Present Illness - Stated complaint Stated Complaint: ABD PX/N/D - Chief complaint Chief Complaint: Abd Pain - Additonal information Additional information: 42-year-old female presenting to the emergency department with abdominal pain. Reports cramping abdominal pain that is diffuse ongoing for several days with associated diarrhea. Reports similar episodes of pain in the past. Reports history of hysterectomy, gallbladder removal, chronic pain for which she takes oxycodone and her pain specialist is in [place]. Denies fever, chest pain, shortness of breath. Review of Systems Constitutional: denies: Fever Eyes: denies: Loss of vision Ears: denies: Loss of hearing Nose: denies: Rhinorrhea / runny nose Throat: denies: Dental pain / toothache Cardiac: denies: Chest pain / pressure GI: reports: Abdominal Pain PD PAST MEDICAL HISTORY - Past Medical History Past Medical History: Yes Cardiovascular: None Respiratory: Asthma Neuro: None Endocrine/Autoimmune: None GI: Other [employer]: Endometriosis, Ovarian cancer : None HEENT: None Psych: Depression, Anxiety Musculoskeletal: Osteoarthritis, Chronic back pain Derm: None - Past Surgical History Past Surgical History: Yes General: Cholecystectomy Ortho: Spine surgery /[employer]: Hysterectomy - Present Medications Home Medications: Ambulatory Orders Medication Instructions Recorded Confirmed Citalopram [CeleXA] 10 mg PO DAILY 02/27/22 11/10/22 oxyCODONE [Roxicodone] 5 mg ORAL QID 02/27/22 11/10/22 Albuterol Sulf [Ventolin Hfa 1 - 2 puffs INH Q4HR PRN 11/10/22 11/10/22 Inhaler] Dicyclomine [Bentyl] 10 mg PO ONCE #10 cap 11/10/22 Ondansetron Odt [Zofran] 4 mg TL Q6H PRN #10 tablet 11/10/22 - Allergies Allergies/Adverse Reactions: Allergies Allergy/AdvReac Type Severity Reaction Status Date / Time acetaminophen [From Tylenol] Allergy Unknown Verified 11/10/22 12:21 amoxicillin Allergy Unknown Verified 11/10/22 12:21 cephalexin [From Keflex] Allergy Unknown Verified 11/10/22 12:21 clavulanic acid Allergy Unknown Verified 11/10/22 12:21 [From Augmentin] gabapentin Allergy Unknown Verified 11/10/22 12:21 hydrocodone [From Vicodin] Allergy Unknown Verified 11/10/22 12:21 ibuprofen Allergy Unknown Verified 11/10/22 12:21 methadone Allergy Unknown Verified 11/10/22 12:21 morphine Allergy Unknown Verified 11/10/22 12:21 Penicillins Allergy Unknown Verified 11/10/22 12:21 tramadol Allergy Unknown Verified 11/10/22 12:21 - Social History Does the pt smoke?: Yes Smoking Status: Current every day smoker Does the pt drink ETOH?: No Does the pt have substance abuse?: Yes Substance Use and Type: Marijuana - Immunizations Immunizations are current?: Yes Results - Vitals Vitals: Vital Signs - 24 hr 11/10/22 11/10/22 11/10/22 12:21 13:57 15:59 Temperature 36.5 C 36.1 C L Heart Rate 81 78 67 Respiratory 18 17 16 Rate Blood Pressure 133/85 H 141/87 H 141/88 H O2 Saturation 99 99 100 Oxygen O2 Source Room air - Labs Labs: Laboratory Tests 11/10/22 11/10/22 11/10/22 12:39 12:39 13:29 WBC 7.2 RBC 4.78 Hgb 14.4 Hct 42.4 MCV 88.7 MCH 30.1 MCHC 34.0 RDW 13.0 Plt Count 226 MPV 10.9 H Neut # (Auto) 4.1 Lymph # (Auto) 2.3 [place] # (Auto) 0.6 Eos # (Auto) 0.1 Baso # (Auto) 0.1 Absolute Nucleated RBC 0.00 Nucleated RBC % 0.0 Sodium 138 Potassium 4.0 Chloride 105 Carbon Dioxide 30 Anion Gap 3.0 L BUN 9 Creatinine 0.8 Estimated GFR (MDRD) 79 L Glucose 91 Calcium 9.7 Total Bilirubin 0.7 AST 15 ALT 11 Alkaline Phosphatase 79 Total Protein 7.3 Albumin 4.4 Globulin 2.9 Albumin/Globulin Ratio 1.5 Lipase 4 L Urine Color YELLOW Urine Clarity CLEAR Urine pH 6.5 Ur Specific [place] <=1.005 Urine Protein NEGATIVE Urine Glucose (UA) NEGATIVE Urine Ketones NEGATIVE Urine Occult Blood NEGATIVE Urine Nitrite NEGATIVE Urine Bilirubin NEGATIVE Urine Urobilinogen 0.2 (NORMAL) Ur Leukocyte Esterase NEGATIVE Ur Microscopic Review NOT INDICATED Urine Culture Comments NOT INDICATED Urine HCG, Qual NEGATIVE PD Medical Decision Making - ED course Complexity details: reviewed results, re-evaluated patient, d/w patient ED course: Patient 42-year-old female presenting to the emergency department with abdominal pain. General tenderness noted on exam without guarding, rebound, rigidity. Patient hysterectomy, cholecystectomy, previous hernia repair. Labs all within normal limits or nonactionable. CT abdomen pelvis within normal limits. Given dose IV morphine, Bentyl, Zofran, IV hydration. On reevaluation found to be resting comfortably and in no acute distress. Will discharge on course of Bentyl, Zofran with instructions to limit use of her currently prescribed oxycodone as a believe that this could be contributing to her symptoms. Clear return precautions given. Departure - Departure Disposition: Home, Self Care Clinical Impression: Abdominal pain Qualifiers: Abdominal location: generalized Qualified Code(s): R10.84 - Generalized abdominal pain Instructions: Abdominal Pain Prescriptions: Dicyclomine [Bentyl] 10 mg PO ONCE #10 cap Ondansetron Odt [Zofran] 4 mg TL Q6H PRN #10 tablet PRN Reason: Nausea / Vomiting Comments: Thank you for allowing us to care for you today would be general. Today in the emergency department your evaluated for any possible life- threatening medical emergency. All the testing in the emergency department today including your blood work and the CT scan of her abdomen and pelvis were all very reassuring. There is no dangerous or life-threatening cause of your symptoms identified. As we discussed I have sent some medication to [facility] in [place] to help with nausea and abdominal cramping. I do recommend that you decrease or limit your use of your prescribed oxycodone as this can cause constipation and could be worsening her symptoms. I like you to follow-up with your primary care doctor soon as possible. If it anytime you have new or worsening symptoms please not hesitate to return. Forms: PCP List Discharge Date/Time: 11/10/22 15:59
[2022-11-10] MEDS: METOCLOPRAMIDE 10 MG TABLET PO SCH (15:35)
[2022-11-10] MEDS: DICYCLOMINE 10 MG CAPSULE PO STA (15:35)
[2022-11-10 16:07] VITALS: BP 141/88; O2SAT 100
[2022-11-10] MEDS: iohexoL-300 100 ML VIAL IVP ONE (16:21)
== END 2022-11-10 15:59 | disposition home or self-care (01) ==
LOC: ED 12:17
DX: R10.84 Generalized abdominal pain (principal); F17.200 Nicotine dependence, unspecified, uncomplicated; Z79.899 Other long term (current) drug therapy
CPT/HCPCS: 36415; 80053; 81001; 81003; 81025; 83690; 85025; 87086; 96374; 96375; 99283

== ENCOUNTER 2022-12-12 12:30 | Emergency (ER) | payer MEDICAID ==
[2022-12-12 12:59] VITALS: O2SAT 100
[2022-12-12] MEDS ORDERED: LIDOCAINE VISCOUS 2% 15 ML ORAL SYRINGE MM STA (13:14)
[2022-12-12] MEDS ORDERED: SUCRALFATE 1 GM/10 ML UDC PO STA (13:14)
[2022-12-12] MEDS ORDERED: SODIUM CHLORIDE 0.9% 1,000 ML IV STA (13:14)
[2022-12-12] MEDS ORDERED: MAG HYDROX/AL HYDROX/SIMETH 30 ML UDC PO STA (13:14)
[2022-12-12] MEDS ORDERED: ONDANSETRON 4 MG/2 ML VIAL IVP STA (13:14)
--- NOTE | 2022-12-12 13:17 | ED Physician Documentation ---
PD HPI ABD PAIN - Stated complaint Stated Complaint: ABD PX/V - Chief complaint Chief Complaint: Abd Pain - History obtained from History obtained from: Patient - History of Present Illness Timing - onset: Today Timing - duration: Hours Timing - details: Abrupt onset, Still present Quality: Cramping, Sharp, Pain Location: All over / everywhere Improved by: Vomiting Worsened by: Moving, Position, Palpation Associated symptoms: Nausea, Vomiting, Diarrhea, Other (coffee ground emesis) Similar symptoms before: No diagnosis Recently seen: Emergency Dept - Additional information Additional information: Kamilla Dang is a 42-year-old female who has had intermittent abdominal cramping and vomiting since her teenage years. She has an episode today similar to what she has had here in the past several months. She has come to the emergency department to be evaluated for this. She has had a CT scan of the abdomen pelvis done on her last visit. She has had some improvement in the her symptoms with Bentyl and morphine. She does take narcotic on a regular basis for low back pain and hip pain and she states that she only takes this as needed and she does not feel that this was a symptom of withdrawal. She states that she has had these symptoms specifically since her teenage years and long before she ever took any narcotics. Review of Systems Constitutional: denies: Fever Eyes: denies: Decreased vision Ears: denies: Ear pain Nose: denies: Congestion Throat: denies: Sore throat Cardiac: denies: Chest pain / pressure, Palpitations Respiratory: denies: Dyspnea, Cough GI: reports: Abdominal Pain, Nausea, Vomiting, Diarrhea. 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: Endometriosis, Ovarian cancer : None HEENT: None Psych: Depression, Anxiety Musculoskeletal: Osteoarthritis, Chronic back pain Derm: None - Past Surgical History Past Surgical History: Yes General: Cholecystectomy Ortho: Shoulder arthroplasty, Spine surgery /PAPER INSERTER: Hysterectomy - Present Medications Home Medications: Ambulatory Orders Medication Instructions Recorded Confirmed Citalopram [CeleXA] 20 mg PO DAILY 02/27/22 12/12/22 oxyCODONE [Roxicodone] 5 mg ORAL QID PRN 02/27/22 12/12/22 Albuterol Sulf [Ventolin Hfa 1 - 2 puffs INH Q4HR PRN 11/10/22 12/12/22 Inhaler] Cetirizine [ZyrTEC] 10 mg PO DAILY 12/12/22 12/12/22 Dicyclomine [Bentyl] 10 mg PO TID PRN 12/12/22 12/12/22 Dicyclomine [Bentyl] 10 mg PO TID PRN #20 cap 12/12/22 Fluticasone [Flonase] 1 sprays HORACE DAILY 12/12/22 12/12/22 Ondansetron Odt [Zofran] 4 mg TL Q6H PRN #10 tablet 12/12/22 - Allergies Allergies/Adverse Reactions: Allergies Allergy/AdvReac Type Severity Reaction Status Date / Time acetaminophen [From Tylenol] Allergy Unknown Verified 12/12/22 12:50 amoxicillin Allergy Unknown Verified 12/12/22 12:50 cephalexin [From Keflex] Allergy Unknown Verified 12/12/22 12:50 clavulanic acid Allergy Unknown Verified 12/12/22 12:50 [From Augmentin] gabapentin Allergy Unknown Verified 12/12/22 12:50 hydrocodone [From Vicodin] Allergy Unknown Verified 12/12/22 12:50 ibuprofen Allergy Unknown Verified 12/12/22 12:50 methadone Allergy Unknown Verified 12/12/22 12:50 morphine Allergy Unknown Verified 12/12/22 12:50 Penicillins Allergy Unknown Verified 12/12/22 12:50 tramadol Allergy Unknown Verified 12/12/22 12:50 - Social History Does the pt smoke?: Yes Smoking Status: Current every day smoker Does the pt drink ETOH?: Yes Does the pt have substance abuse?: Yes Substance Use and Type: Marijuana - Immunizations Immunizations are current?: Yes PD ED PE NORMAL - Vitals Vital signs reviewed: Yes (hypertensive ) - General General: Alert and oriented X 3, Well developed/nourished, Other (Appears to be in pain with director machine tone and flattened affect. ) - HEENT HEENT: Atraumatic, PERRL, EOMI - Neck Neck: Supple, no meningeal sign, No bony TTP - Cardiac Cardiac: RRR, No murmur - Respiratory Respiratory: No respiratory distress, Clear bilaterally - Abdomen Abdomen: Normal bowel sounds, Soft, Non distended, No organomegaly, Other (mild diffuse tenderness no gaurding or rebound. ) - Back Back: No CVA TTP, No spinal TTP - Derm Derm: Normal color, Warm and dry, No rash - Extremities Extremities: No deformity, No edema - Neuro Neuro: Alert and oriented X 3, aircraft instrument mechanic 2-12 intact, No motor deficit, No sensory deficit, Normal speech Eye Opening: Spontaneous Motor: Obeys Commands Verbal: Oriented GCS Score: 15 - Psych Psych: Normal mood, Normal affect Results - Vitals Vitals: Vital Signs - 24 hr 12/12/22 12/12/22 12/12/22 12:50 12:54 14:51 Temperature 36.7 C 36.7 C 36.5 C Heart Rate 95 95 88 Respiratory 20 20 16 Rate Blood Pressure 136/110 H 136/100 H 130/88 H O2 Saturation 100 100 100 Oxygen O2 Source Room air - Labs Labs: Laboratory Tests 12/12/22 12/12/22 12/12/22 13:00 13:18 13:18 WBC 8.1 RBC 4.82 Hgb 14.6 Hct 43.4 MCV 90.0 MCH 30.3 MCHC 33.6 RDW 13.0 Plt Count 227 MPV 11.0 H Neut # (Auto) 5.3 Lymph # (Auto) 2.0 [place] # (Auto) 0.6 Eos # (Auto) 0.1 Baso # (Auto) 0.0 Absolute Nucleated RBC 0.00 Nucleated RBC % 0.0 Sodium 141 Potassium 3.8 Chloride 108 Carbon Dioxide 29 Anion Gap 4.0 L BUN 16 Creatinine 0.7 Estimated GFR (MDRD) 93 Glucose 88 Calcium 9.7 Total Bilirubin 0.6 AST 14 ALT 11 Alkaline Phosphatase 79 Total Protein 7.2 Albumin 4.5 Globulin 2.7 Albumin/Globulin Ratio 1.7 Lipase 3 L Urine Color YELLOW Urine Clarity CLEAR Urine pH 8.0 H Ur Specific [place] 1.015 Urine Protein NEGATIVE Urine Glucose (UA) NEGATIVE Urine Ketones NEGATIVE Urine Occult Blood NEGATIVE Urine Nitrite NEGATIVE Urine Bilirubin NEGATIVE Urine Urobilinogen 0.2 (NORMAL) Ur Leukocyte Esterase NEGATIVE Ur Microscopic Review NOT INDICATED Urine Culture Comments NOT INDICATED PD Medical Decision Making - ED course Complexity details: reviewed results, re-evaluated patient, considered differential, d/w patient Reviewed Lab Results: We reviewed a complete blood count showing a normal white blood cell count normal hemoglobin hematocrit and platelets. Chemistries were unremarkable with normal electrolytes normal kidney and liver function. Urinalysis also unremarkable with urine specific gravity 1.015 negative for leukocyte Estrace.I interpreted these laboratory studies to indicate the patient's underlying process was a benign process and consistent with her diagnosis of irritable bowel syndrome. ED course: 42-year-old female with recurrent abdominal cramping and vomiting gives a negative history for cannabis hyperemesis. She indicates that she has gotten into the tub or shower without any relief. She also states that these episodes have been occurring to her since she was in her teenage years. I did discuss with her her narcotic use and its potential effect on this. She did eventually get relief with a dose of Dilaudid. She was also given Bentyl. She was given intravenous fluid. I have asked the patient to follow-up with gastroenterology. Departure - Departure Disposition: 01 Home, Self Care Clinical Impression: Irritable bowel syndrome (IBS) Qualifiers: Irritable bowel syndrome type: with diarrhea Qualified Code(s): K58.0 - Irritable bowel syndrome with diarrhea Condition: Stable Instructions: ED IBS Follow-Up: Your, doctor [Other] Prescriptions: Dicyclomine [Bentyl] 10 mg PO TID PRN #20 cap PRN Reason: abdominal cramp Ondansetron Odt [Zofran] 4 mg TL Q6H PRN #10 tablet PRN Reason: Nausea / Vomiting Comments: Kamilla, today it looks like you have a recurrence of your irritable bowel. I have E scribed some medication for cramping and nausea to the [facility] in [place]. A follow-up with a metallurgy laboratory technician is indicated. Talk to your primary care provider about a referral to gastroenterology. Discharge Date/Time: 12/12/22 14:51
[2022-12-12 13:26] LABS: BILIRUBIN,URINE NEGATIVE (NEGATIVE); GLUCOSE, URINE (UA) NEGATIVE (NEGATIVE); KETONES,URINE (UA) NEGATIVE (NEGATIVE); LEUKOCYTE ESTERASE, URINE NEGATIVE (NEGATIVE); NITRITE,URINE NEGATIVE (NEGATIVE); OCCULT BLOOD,URINE NEGATIVE (NEGATIVE); PROTEIN,URINE NEGATIVE (NEGATIVE); UROBILINOGEN,URINE 0.2 (NORMAL) E.U./dL (NORMAL)
[2022-12-12 13:27] LABS: BASOPHILS % (AUTO) 0.5 %; EOSINOPHILS # (AUTO) 0.1 10^3/uL (0.0-0.7); EOSINOPHILS % (AUTO) 1.4 %; HCT - HEMATOCRIT 43.4 % (37.0-47.0); HGB - HEMOGLOBIN 14.6 g/dL (12.0-16.0); LYMPHOCYTES % (AUTO) 24.5 %; MEAN CORPUSCULAR HEMOGLOBIN 30.3 pg (27.0-31.0); MEAN CORPUSCULAR HGB CONC 33.6 g/dL (32.0-36.0); MONOCYTES # (AUTO) 0.6 10^3/uL (0.0-1.0); MONOCYTES % (AUTO) 7.2 %; NEUTROPHILS # (AUTO) 5.3 10^3/uL (1.5-6.6); NEUTROPHILS % (AUTO) 66.2 %; PLT - PLATELET COUNT 227 10^3/uL (130-450); RED BLOOD COUNT 4.82 10^6/uL (4.20-5.40); WHITE BLOOD COUNT 8.1 x10^3/uL (4.8-10.8)
[2022-12-12 13:28] LABS: CLARITY,URINE CLEAR (CLEAR)
[2022-12-12 13:40] LABS: ALBUMIN 4.5 g/dL (3.2-5.5); ALBUMIN/GLOBULIN RATIO 1.7 (1.0-2.2); BILIRUBIN,TOTAL 0.6 mg/dL (0.2-1.0); CALCIUM 9.7 mg/dL (8.5-10.3); CREATININE 0.7 mg/dL (0.6-1.3); POTASSIUM 3.8 mmol/L (3.5-4.5); TOTAL PROTEIN 7.2 g/dL (6.4-8.9)
[2022-12-12] MEDS ORDERED: DICYCLOMINE 10 MG CAPSULE PO STA (13:59)
[2022-12-12] MEDS ORDERED: MORPHINE 2 MG/ML CARPUJECT IVP STA (14:00)
[2022-12-12] MEDS ORDERED: HYDROmorphone 1 MG/ML CARPUJECT IVP STA (14:07)
[2022-12-12 14:54] VITALS: BP 130/88
== END 2022-12-12 14:51 | disposition home or self-care (01) ==
LOC: ED 12:30
DX: K58.0 Irritable bowel syndrome with diarrhea (principal); F17.200 Nicotine dependence, unspecified, uncomplicated
CPT/HCPCS: 36415; 80053; 81003; 83690; 85025; 96374; 96375; 99283; 99284; A9270; J1170; 81001; 87086

== ENCOUNTER 2023-01-12 13:57 | Emergency (ER) | payer MEDICAID ==
[2023-01-12 14:27] VITALS: BP 147/95; O2SAT 98
[2023-01-12] MEDS ORDERED: oxyCODONE 5 MG TABLET PO STA (15:07)
[2023-01-12] MEDS ORDERED: CYCLOBENZAPRINE 10 MG TABLET PO STA (15:08)
--- NOTE | 2023-01-12 15:27 | ED Physician Documentation ---
PD HPI NECK PAIN - Stated complaint Stated Complaint: NECK INJ/PX - Chief complaint Chief Complaint: General - History obtained from History obtained from: Patient - Additional information Additional information: Patient is a 42-year-old female presenting for evaluation of neck pain radiating to the left shoulder that started just prior to arrival as she was stepping off a bus. Patient states she was getting off the bus when she heard a noise and turned her head and felt pain. She reports Associated nausea. No headache. No falls or injury. Does not take a blood thinner. No chest pain or shortness of air. Pain is worse with movements. She takes oxycodone 10 mg 3 times daily for pain regularly and has only had her morning dose. No afternoon dose yet. Has not tried any medications since the onset of this pain. Denies any radiation of the pain into her arms.Reports prior cervical fusion. 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, Ovarian cancer : None HEENT: None Psych: Depression, Anxiety Musculoskeletal: Osteoarthritis, Chronic back pain Derm: None - Past Surgical History Past Surgical History: Yes General: Cholecystectomy Ortho: Shoulder arthroplasty, Spine surgery /COMBINATION MACHINE TENDER: Hysterectomy - Present Medications Home Medications: Ambulatory Orders Medication Instructions Recorded Confirmed Citalopram [CeleXA] 20 mg PO DAILY 02/27/22 12/12/22 oxyCODONE [Roxicodone] 5 mg ORAL QID PRN 02/27/22 12/12/22 Albuterol Sulf [Ventolin Hfa 1 - 2 puffs INH Q4HR PRN 11/10/22 12/12/22 Inhaler] Cetirizine [ZyrTEC] 10 mg PO DAILY 12/12/22 12/12/22 Dicyclomine [Bentyl] 10 mg PO TID PRN 12/12/22 12/12/22 Dicyclomine [Bentyl] 10 mg PO TID PRN #20 cap 12/12/22 Fluticasone [Flonase] 1 sprays HORACE DAILY 12/12/22 12/12/22 Ondansetron Odt [Zofran] 4 mg TL Q6H PRN #10 tablet 12/12/22 Cyclobenzaprine [Flexeril] 10 mg PO TID PRN #20 tablet 01/12/23 - Allergies Allergies/Adverse Reactions: Allergies Allergy/AdvReac Type Severity Reaction Status Date / Time acetaminophen [From Tylenol] Allergy Unknown Verified 12/12/22 12:50 amoxicillin Allergy Unknown Verified 12/12/22 12:50 cephalexin [From Keflex] Allergy Unknown Verified 12/12/22 12:50 clavulanic acid Allergy Unknown Verified 12/12/22 12:50 [From Augmentin] gabapentin Allergy Unknown Verified 12/12/22 12:50 hydrocodone [From Vicodin] Allergy Unknown Verified 12/12/22 12:50 ibuprofen Allergy Unknown Verified 12/12/22 12:50 methadone Allergy Unknown Verified 12/12/22 12:50 morphine Allergy Unknown Verified 12/12/22 12:50 Penicillins Allergy Unknown Verified 12/12/22 12:50 tramadol Allergy Unknown Verified 12/12/22 12:50 - Social History Does the pt smoke?: Yes Smoking Status: Current every day smoker Does the pt drink ETOH?: Yes Does the pt have substance abuse?: Yes - Immunizations Immunizations are current?: Yes PD ED PE NORMAL - General General: Alert and oriented X 3, No acute distress, Well developed/nourished - HEENT HEENT: Atraumatic, Moist mucous membranes, Pharynx benign - Neck Neck: Supple, no meningeal sign, No bony TTP, Other (Left paracervical tenderness) - Cardiac Cardiac: RRR, Strong equal pulses - Respiratory Respiratory: No respiratory distress, Clear bilaterally - Derm Derm: Warm and dry - Extremities Extremities: Other (Normal strength with shoulder extension, arm flexion and extension, ) - Neuro Neuro: Alert and oriented X 3, No motor deficit, Normal speech Results - Vitals Vitals: Vital Signs - 24 hr 01/12/23 14:19 Temperature 37.4 C Heart Rate 84 Respiratory 20 Rate Blood Pressure 147/95 H O2 Saturation 98 Oxygen O2 Source Room air PD Medical Decision Making - ED course ED course: Patient is a 42-year-old female presenting for evaluation of left-sided neck pain after stepping off a bus and turning her head. No injury or trauma. Normal neuro exam. Mechanism does not suggest fracture dislocation or dissectio n. Patient does have point tenderness to the musculature over the left paracervical region. Discussed options for treatment including trial of muscle relaxers along with anti-inflammatories. Patient already has prescription for narcotic pain medications at home. She was counseled on continued supportive care as well as concerning symptoms to return for. Encouraged to have close PCP follow-up. Departure - Departure Disposition: Home, Self Care Clinical Impression: Neck strain Condition: Stable Instructions: ED Neck Back Pain General Prescriptions: Cyclobenzaprine [Flexeril] 10 mg PO TID PRN #20 tablet PRN Reason: Spasms Comments: You were evaluated for neck pain. I have sent a prescription for muscle relaxer to [facility] in [place]. Please take caution when using this medication as it can cause drowsiness. I would recommend close follow-up with your primary care provider. Please return to the emergency department if you develop any worsening symptoms such as weakness in your arms or worsening pain, fevers. Forms: PCP List, Activity restrictions Discharge Date/Time: 01/12/23 15:37
== END 2023-01-12 15:37 | disposition home or self-care (01) ==
LOC: ED 13:57
DX: S16.1XXA Strain of muscle, fascia and tendon at neck level, initial encounter (principal); X58.XXXA Exposure to other specified factors, initial encounter; F17.200 Nicotine dependence, unspecified, uncomplicated
CPT/HCPCS: 99282; 99283; A9270